=== PATIENT | female | born 1930 | race Asian ===

== ENCOUNTER → 2020-01-17 | Outpatient (CLI) | payer OTHER | END | disposition home or self-care (01) | LOC: HBOWC 07:50 | PROVIDERS: ATTEND Emergency Medicine | DX: B35.3 Tinea pedis (principal); I10 Essential (primary) hypertension; E78.5 Hyperlipidemia, unspecified; M81.0 Age-related osteoporosis without current pathological fracture ==

== ENCOUNTER → 2020-02-10 | Outpatient (CLI) | payer OTHER | END | disposition home or self-care (01) | LOC: HBOWC 08:48 | PROVIDERS: ATTEND Podiatrist | DX: I70.235 Atherosclerosis of native arteries of right leg with ulceration of other part of foot (principal); L97.512 Non-pressure chronic ulcer of other part of right foot with fat layer exposed; S91.301D Unspecified open wound, right foot, subsequent encounter; B35.3 Tinea pedis; L84 Corns and callosities; M81.0 Age-related osteoporosis without current pathological fracture; I10 Essential (primary) hypertension; E78.5 Hyperlipidemia, unspecified; X58.XXXD Exposure to other specified factors, subsequent encounter | CPT/HCPCS: 11042 ==

== ENCOUNTER → 2020-02-17 | Outpatient (CLI) | payer OTHER | END | disposition home or self-care (01) | LOC: HBOWC 09:25 | PROVIDERS: ATTEND Podiatrist | DX: I70.235 Atherosclerosis of native arteries of right leg with ulceration of other part of foot (principal); L97.512 Non-pressure chronic ulcer of other part of right foot with fat layer exposed; S91.301D Unspecified open wound, right foot, subsequent encounter; B35.3 Tinea pedis; L84 Corns and callosities; M81.0 Age-related osteoporosis without current pathological fracture; I10 Essential (primary) hypertension; E78.5 Hyperlipidemia, unspecified; X58.XXXD Exposure to other specified factors, subsequent encounter | CPT/HCPCS: 11042 ==

== ENCOUNTER → 2020-02-24 | Outpatient (CLI) | payer OTHER | END | disposition home or self-care (01) | LOC: HBOWC 10:04 | PROVIDERS: ATTEND Podiatrist | DX: I70.235 Atherosclerosis of native arteries of right leg with ulceration of other part of foot (principal); S91.301D Unspecified open wound, right foot, subsequent encounter; L97.512 Non-pressure chronic ulcer of other part of right foot with fat layer exposed; B35.3 Tinea pedis; L84 Corns and callosities; M81.0 Age-related osteoporosis without current pathological fracture; I10 Essential (primary) hypertension; E78.5 Hyperlipidemia, unspecified; X58.XXXD Exposure to other specified factors, subsequent encounter | CPT/HCPCS: G0463; Z7500 ==

== ENCOUNTER → 2020-03-27 | Outpatient (CLI) | payer OTHER ==
[~2020-03-27] MED LIST: LIDOCAINE 4% 50 ML SOLUTION TP ONE; MUPIROCIN CALCIUM 2% 22 GM OINTMENT TP ONE
== END | disposition home or self-care (01) ==
LOC: HBOWC 08:58
PROVIDERS: ATTEND Emergency Medicine
DX: I70.235 Atherosclerosis of native arteries of right leg with ulceration of other part of foot (principal); L97.512 Non-pressure chronic ulcer of other part of right foot with fat layer exposed; S91.301D Unspecified open wound, right foot, subsequent encounter; B35.3 Tinea pedis; L84 Corns and callosities; M81.0 Age-related osteoporosis without current pathological fracture; I10 Essential (primary) hypertension; E78.5 Hyperlipidemia, unspecified; X58.XXXD Exposure to other specified factors, subsequent encounter

== ENCOUNTER → 2020-04-10 | Outpatient (CLI) | payer OTHER | END | disposition home or self-care (01) | LOC: HBOWC 08:57 | PROVIDERS: ATTEND Emergency Medicine | DX: I70.235 Atherosclerosis of native arteries of right leg with ulceration of other part of foot (principal); L97.512 Non-pressure chronic ulcer of other part of right foot with fat layer exposed; S91.301D Unspecified open wound, right foot, subsequent encounter; B35.3 Tinea pedis; L84 Corns and callosities; M81.0 Age-related osteoporosis without current pathological fracture; I10 Essential (primary) hypertension; E78.5 Hyperlipidemia, unspecified; X58.XXXD Exposure to other specified factors, subsequent encounter | CPT/HCPCS: G0463; Z7500 ==